=== PATIENT | female | born 1985 | race Caucasian/White ===

== ENCOUNTER 2017-07-09 22:30 | Emergency (ER) | payer SELFPAY ==
[2017-07-09] MEDS ORDERED: Ondansetron ODT 4 MG TAB ONE (23:07)
[2017-07-09] MEDS ORDERED: Cyclobenzaprine 10 MG TAB ONE (23:07)
[2017-07-09] MEDS ORDERED: Ketorolac Tromethamine 30 MG/ML VIAL ONE (23:07)
== END 2017-07-09 23:31 | disposition home or self-care (01) ==
LOC: MADERS 22:30
DX: M54.5 Low back pain (principal); D64.9 Anemia, unspecified; F17.210 Nicotine dependence, cigarettes, uncomplicated
CPT/HCPCS: 96372; J1885; Q0162